=== PATIENT | female | born 1955 | race Caucasian/White ===

== ENCOUNTER 2019-05-23 18:38 | Emergency (ER) | payer OTHER, SELFPAY ==
[2019-05-23 18:38] VITALS: BP 205/116; PULSE 94; RESP 18; TEMP 36.8; O2SAT 99; BMI 42.7
--- NOTE | 2019-05-23 19:42 | ED.DCSUM_ITS ---
- ER Visit Summary Date of Service: 05/23/19 Chief Complaint: High blood pressure History of Present Illness: The patient is a 63 F presenting with elevated blood pressure. She states this has been ongoing since Monday. She had a routine colonoscopy performed on Monday. At that time it was noted that her blood pressure was high. She has been checking it throughout the week and has remained elevated with systolic in the 170s to 180s. She is on quinapril and atenolol. She has been on these medications for several years. She was previously on hydrochlorothiazide which was stopped 3 weeks ago. She has an appointment with her primary care physician next week. She complains of mild headache. Denies chest pain or shortness of breath. Denies other complaints. Physical Examination: Vitals are stable. Blood pressure 205/116. Patient is afebrile. Alert no acute distress. HEENT exam is unremarkable. Neck is supple. Lungs are clear and equal bilaterally. Heart is regular rate and rhythm. Abdomen is soft nontender nondistended. Extremities are unremarkable. Skin is warm and dry. No focal neurologic deficit. Remainder of exam is unremarkable. Emergency Department Course and Treatment: Repeat blood pressure 184/93. Basic metabolic panel unremarkable other than BUN 21. Discussed with Dr. Alvarez covering for Dr. Dietz. He recommends starting her on amlodipine and following up with Dr. Dietz. Patient is agreeable with this plan. Advised to return to the ED for any worsening complaints. Disposition: Discharge home Impression: Hypertension This note was generated with [employer] dictation software. It may contain incorrect words, spelling, and punctuation that were not noted in review of the chart prior to signing ED Disposition - Plan for ED Patient: Instructions: HYPERTENSION, Established Prescriptions: Amlodipine [Norvasc] 5 mg PO DAILY #30 tab Prescription Printed Referrals: Dimitris Dietz III, MD [Primary Care Provider] -
[2019-05-23 19:52] LABS: Anion Gap 9 (5-15); BUN 21 mg/dL (7-18); BUN/Creat Ratio 21.6 RATIO (10-20); Calcium,Total 8.9 mg/dL (8.5-10.1); Chloride 110 mmol/L (98-107); Creatinine, Serum 0.97 mg/dL (0.55-1.02); EST Glomerular Filtration Rate 62 mL/min (>60); Est Glom Filt Rate - Afr Amer 75 mL/min (>60); Estimated Creatinine Clearance 51.93 ml/min; Glucose 92 mg/dL (74-106); Potassium 3.8 mmol/L (3.5-5.1); Sodium Level 144 mmol/L (136-145)
--- NOTE | 2019-05-23 20:07 | ED.DEP ---
ED Disposition - Plan for ED Patient: Instructions: HYPERTENSION, Established Prescriptions: Amlodipine [Norvasc] 5 mg PO DAILY #30 tablet Referrals: Dimitris Dietz III, MD [Primary Care Provider] -
[2019-05-23 20:24] VITALS: BP 182/93; PULSE 74; RESP 14; O2SAT 98
== END 2019-05-23 20:25 | disposition home or self-care (01) ==
PROVIDERS: Emergency Provider Emergency Medicine; Family Provider Family Medicine; PCP Family Medicine
DX: I10 Essential (primary) hypertension (principal); Z79.84 Long term (current) use of oral hypoglycemic drugs; Z79.899 Other long term (current) drug therapy
CPT/HCPCS: 80048; 99282

== ENCOUNTER → 2019-08-22 09:52 | Outpatient (CLI) | payer OTHER, SELFPAY ==
--- NOTE | 2019-08-22 10:02 | RAD_ITS ---
STUDY: X-RAY CHEST REASON FOR EXAM: Female, 63 years old. PRE OP; -- NO CHEST COMPLAINTS TECHNIQUE: Frontal and lateral views of the chest. COMPARISON: None. FINDINGS: The lungs are clear and expanded. There is no demonstrated pleural abnormality. Normal size heart. Normal mediastinum and alfredo. Normal visualized pulmonary arteries. Normal visualized aortic arch and descending thoracic aorta. Normal visualized thoracic spine. Normal visualized ribs, clavicles, and shoulders. There is no demonstrated abnormality of the visualized soft tissue structures of the upper abdomen. RAD/Chest PA and Lateral IMPRESSION: Normal x-ray examination of the chest. Electronically Signed: Michael Tinsley MD at 0:46 EST Tel , Service support ,
--- NOTE | 2019-08-22 10:09 | EKG12_ITS ---
Test Reason : PREOP Blood Pressure : / mmHG Vent. Rate : 085 BPM Atrial Rate : 085 BPM P-R Int : 142 ms QRS Dur : 082 ms QT Int : 376 ms P-R-T Axes : 064 001 027 degrees QTc Int : 447 ms Normal sinus rhythm Possible Inferior infarct , age undetermined Abnormal ECG Confirmed by NORMA BROWN, NATASHA ([id number]), editor house organ MARYCHUY INGRAM ([id number]) on 08/23/2019 2:38:15 PM Referred By: Joseph Phelan Confirmed By:TIFFANIE GREEN MD
== END ==
LOC: LAB 09:54 → RAD 09:56
PROVIDERS: PCP Family Medicine; Referring Provider Orthopaedic Surgery; Visit Provider Orthopaedic Surgery
DX: Z01.811 Encounter for preprocedural respiratory examination (principal); Z01.810 Encounter for preprocedural cardiovascular examination
CPT/HCPCS: 71046; 93005

== ENCOUNTER 2019-09-20 20:39 | Emergency (ER) | payer OTHER, SELFPAY ==
[2019-09-20 20:40] VITALS: BP 165/86; PULSE 89; RESP 16; TEMP 36.4; O2SAT 100; BMI 39.9
[2019-09-20 21:00] VITALS: BP 109/59; BP 119/67; BP 119/76; PULSE 71; PULSE 81; PULSE 91
[2019-09-20 21:06] VITALS: BP 119/76; PULSE 84; RESP 16; O2SAT 99
--- NOTE | 2019-09-20 21:19 | EKG12_ITS ---
Test Reason : DYSRHYTHMIA Blood Pressure : / mmHG Vent. Rate : 077 BPM Atrial Rate : 077 BPM P-R Int : 146 ms QRS Dur : 088 ms QT Int : 384 ms P-R-T Axes : 048 -05 027 degrees QTc Int : 434 ms Normal sinus rhythm Inferior infarct , age undetermined Abnormal ECG Confirmed by NORMA BROWN, NATASHA ([id number]), photographic editor SAMSON ZAYAS ([id number]) on 09/23/2019 2:09:11 PM Referred By: ABHIJEET Confirmed By:TIFFANIE GREEN MD
[2019-09-20 21:56] VITALS: BP 109/59; PULSE 73; RESP 13; O2SAT 98
[2019-09-20 22:15] LABS: Absolute Lymphocyte Count 1.21 X10^3/uL (0.83-4.51); Absolute Neutrophil Count 2.4 X10^3/uL (2.0-7.7); Basophil# 0.05 X10^3/uL; Basophil% 1.1 % (0-1); Eosinophil# 0.21 X10^3/uL; Eosinophils% 4.8 % (0-5); Hematocrit 35.2 % (37-47); Hemoglobin 11.5 g/dL (12.0-15.0); Lymphocyte # 1.21 X10^3/ul (4.0); Lymphocyte % 27.6 % (19-41); Mean Corp Hgb Conc 32.7 g/dL (32-36); Mean Corpuscular Hgb 28.8 pg (27.0-32.0); Mean Corpuscular Volume 88.2 fL (81-99); Mean Platelet Vol. 9.6 fl (6.2-12.0); Monocyte# 0.54 X10^3/uL; Monocyte% 12.3 % (0-10); NRBC Flagged by Analyzer 0 % (0-5); Neutrophil # 2.36 X10^3/uL (2.7-7.7); Neutrophil % 53.7 % (47-70); Platelet Count 272 K/mm3 (150-450); RBC Distribution Width CV 13.9 % (11.6-14.6); RBC Distribution Width SD 44.6 fl (35.1-43.9); Red Blood Count 3.99 M/mm3 (4.2-5.4); White Blood Count 4.4 K/mm3 (4.4-11.0)
[2019-09-20 22:18] LABS: AST(SGOT) 15 U/L (15-37); Alanine Aminotransfer ALT/SGPT 37 U/L (13-56); Albumin, Serum 3.6 g/dL (3.2-5.0); Alkaline Phosphatase 68 U/L (45-117); Anion Gap 7 (5-15); BUN 24 mg/dL (7-18); BUN/Creat Ratio 17.3 RATIO (10-20); Calcium,Total 9.2 mg/dL (8.5-10.1); Chloride 102 mmol/L (98-107); Creatinine, Serum 1.39 mg/dL (0.55-1.02); EST Glomerular Filtration Rate 41 mL/min (>60); Est Glom Filt Rate - Afr Amer 49 mL/min (>60); Estimated Creatinine Clearance 35.77 ml/min; Globulin 3.5 g/dL (2.2-4.2); Glucose 122 mg/dL (74-106); Potassium 3.6 mmol/L (3.5-5.1); Protein, Total 7.1 g/dL (6.4-8.2); Sodium Level 136 mmol/L (136-145)
--- NOTE | 2019-09-20 22:43 | ED.VISSUMM ---
- ER Visit Summary Date of Service: 09/20/19 Chief Complaint: Lightheaded History of Present Illness: The patient is a [address] Dimitris Dietz. She reports that she has a history of hypertension. She has been on the same medications for years. She had Norvasc added approximately 4 months ago and had not had any problems until today. She reports that 10:00 this morning she had been standing for approximately 5 minutes and was walking to the hospital when she began feeling lightheaded. She did not pass out. States that she had multiple episodes of this throughout the day. It did not seem to be related to standing. She denies any other associated symptoms. No chest pain, palpitations, abdominal pain, diaphoresis, shortness of breath. Patient reports that this evening she is felt nauseated and had generalized weakness. She denies any other complaints. Physical Examination: Vitals: Stable. Afebrile. General: Well-nourished and well-developed. Head: Normocephalic atraumatic. Neck: Supple, no lymphadenopathy. No JVD. Nontender. Cardiovascular: Regular rate and rhythm. No murmurs. Respiratory: No respiratory distress. Clear to auscultation bilaterally. Abdominal: Soft, nontender, nondistended, normal bowel sounds. No guarding, rebound, or peritoneal signs. Back: Nontender. Extremities: Nontender, no edema. Skin: Normal color, no rash. Neurologic: Alert and oriented ?3. Cranial nerves II through XII are intact. Normal strength and sensation. Psych: Normal affect. Test Results: EKG is sinus at 77 with no acute changes. Troponin is negative. LFTs are normal. Chem-7 shows a glucose 122, BUN 24, creatinine 1.39. Creatinine last year was 0.8. CBC shows an H&H of 11.5 and 35.2, monocytes of 12. Emergency Department Course and Treatment: Patient had an IV placed. She was given a liter of normal saline. She had negative with static vital signs while here. She is resting comfortably. Treatment Plan: Patient be discharged instructions to push fluids. Follow-up Dr. Dimitris Dietz III in 3 to 5 days for repeat blood work. Return to the emergency department for any worsening symptoms. Disposition: To home in improved and stable condition. Impression: 1. Dehydration. This note was generated with [employer] dictation software. It may contain incorrect words, spelling, and punctuation that were not noted in review of the chart prior to signing ED Disposition - Plan for ED Patient: Disposition: Home or Assisted Living Instructions: DEHYDRATION (7y-Adult) Referrals: Dimitris Dietz III, MD [Primary Care Provider] - 3-5 Days
[2019-09-20 23:00] VITALS: BP 111/67; PULSE 70; RESP 17; O2SAT 99
== END 2019-09-20 23:01 | disposition home or self-care (01) ==
LOC: ED 21:25
PROVIDERS: Emergency Provider Emergency Medicine; PCP Family Medicine
DX: E86.0 Dehydration (principal); E11.9 Type 2 diabetes mellitus without complications; I10 Essential (primary) hypertension; Z79.84 Long term (current) use of oral hypoglycemic drugs; Z79.899 Other long term (current) drug therapy
CPT/HCPCS: 80053; 84484; 85025; 93005; 96360; 99285; J7030; A4216; J2405

== ENCOUNTER → 2021-03-19 08:29 | Outpatient (CLI) | payer OTHER, SELFPAY ==
--- NOTE | 2021-03-19 09:07 | EKG12_ITS ---
Test Reason : PRE OP Blood Pressure : / mmHG Vent. Rate : 088 BPM Atrial Rate : 088 BPM P-R Int : 148 ms QRS Dur : 082 ms QT Int : 376 ms P-R-T Axes : 064 016 037 degrees QTc Int : 454 ms Normal sinus rhythm Normal ECG Confirmed by GREG BROWN, YOKO ([id number]), script editor SAMSON ZAYAS ([id number]) on 03/22/2021 1:09:21 PM Referred By: Joseph Phelan Confirmed By:YOKO GARZA MD
== END ==
PROVIDERS: PCP Family Medicine; Referring Provider Orthopaedic Surgery; Visit Provider Orthopaedic Surgery
DX: Z01.818 Encounter for other preprocedural examination (principal); Z11.59 Encounter for screening for other viral diseases; E11.9 Type 2 diabetes mellitus without complications
CPT/HCPCS: 87426; 93005; C9803

== ENCOUNTER → 2021-03-23 12:30 | Outpatient (CLI) | payer OTHER, SELFPAY ==
[2021-03-23 13:11] LABS: Hematocrit 42.4 % (37-47); Hemoglobin 13.7 g/dL (12.0-15.0); Mean Corp Hgb Conc 32.3 g/dL (32-36); Mean Corpuscular Hgb 28.6 pg (27.0-32.0); Mean Corpuscular Volume 88.5 fL (81-99); Mean Platelet Vol. 10.2 fl (6.2-12.0); Platelet Count 336 K/mm3 (150-450); RBC Distribution Width CV 13.6 % (11.6-14.6); RBC Distribution Width SD 43.9 fl (35.1-43.9); Red Blood Count 4.79 M/mm3 (4.2-5.4); White Blood Count 6.8 K/mm3 (4.4-11.0)
[2021-03-23 13:29] LABS: Hemoglobin A1c 6.3 % (3.8-5.6)
[2021-03-23 14:16] LABS: Anion Gap 6 (5-15); BUN 24 mg/dL (7-18); BUN/Creat Ratio 26.5 RATIO (10-20); Calcium,Total 9.8 mg/dL (8.5-10.1); Chloride 106 mmol/L (98-107); Creatinine, Serum 0.91 mg/dL (0.55-1.02); EST Glomerular Filtration Rate 66 mL/min (>60); Est Glom Filt Rate - Afr Amer 80 mL/min (>60); Glucose 83 mg/dL (74-106); Potassium 3.9 mmol/L (3.5-5.1); Sodium Level 140 mmol/L (136-145)
== END ==
PROVIDERS: PCP Family Medicine; Referring Provider Orthopaedic Surgery; Visit Provider Orthopaedic Surgery
DX: Z01.818 Encounter for other preprocedural examination (principal); E11.9 Type 2 diabetes mellitus without complications
CPT/HCPCS: 36415; 80048; 83036; 85027